=== PATIENT | female | born 1965 | race Caucasian/White ===

== ENCOUNTER → 2018-02-08 12:27 | Outpatient (CLI) | payer OTHER, SELFPAY ==
[2018-02-23 15:08] LABS: Alanine Aminotransferase 69 IU/L (9-52); Albumin 4.6 g/dL (3.5-5.0); Albumin Globulin Ratio 1.5 (1.0-2.8); Alkaline Phosphatase 91 U/L (38-126); Aspartate Aminotransferase 31 IU/L (14-36); Bilirubin Total 0.7 mg/dL (0.2-1.3); Bilirubin Unconjugated 0.4 mg/dL (0.0-1.1); Globulin 3.1 g/dL (1.7-4.1); HEMOLYSIS < 15 (0-50); Total Protein 7.7 g/dL (6.3-8.2)
[2018-02-25 16:43] LABS: Hepatitis A Antibody IgM NONREACTIVE; Hepatitis Acute Panel Interp 0.01; Hepatitis B Core Antibody IgM NONREACTIVE; Hepatitis B Surface Antigen NONREACTIVE; Hepatitis C Antibody NONREACTIVE
== END ==
PROVIDERS: Family Provider Family Medicine; PCP Family Medicine; Visit Provider Internal Medicine
DX: R19.7 Diarrhea, unspecified (principal); R50.9 Fever, unspecified
CPT/HCPCS: 87045

== ENCOUNTER → 2018-02-08 12:37 | Outpatient (CLI) | payer OTHER, SELFPAY ==
[2018-02-08 13:59] LABS: Alanine Aminotransferase 64 IU/L (9-52); Albumin 4.2 g/dL (3.5-5.0); Albumin Globulin Ratio 1.2 (1.0-2.8); Alkaline Phosphatase 117 U/L (38-126); Amylase 93 U/L (30-110); Aspartate Aminotransferase 52 IU/L (14-36); Bilirubin Total 0.6 mg/dL (0.2-1.3); Blood Urea Nitrogen 8 mg/dL (7-17); Carbon Dioxide 30 mmol/L (22-32); Chloride 98 mmol/L (98-107); Estimated Glomerular Filt Rate > 60.0 mL/min (>60); Globulin 3.4 g/dL (1.7-4.1); Glucose 94 mg/dL (70-100); HEMOLYSIS < 15 (0-50); Lipase 210 U/L (23-300); Potassium 4.3 mmol/L (3.4-5.1); Sodium 139 mmol/L (137-145); Total Protein 7.6 g/dL (6.3-8.2)
[2018-02-08 14:06] LABS: Add Manual Diff / Slide Review NO; Basophils Percent Auto 0.9 % (0-2); Eosinophils Percent Auto 0.6 % (2-4); Hematocrit 40.7 % (36-46); Lymphocytes Percent Auto 27.9 % (25-40); Mean Corpuscular HGB Conc 34.5 % (30-36); Monocytes Percent Auto 11.4 % (3-14); Neutrophils Absolute Auto 3400 /uL (3000-5900); Neutrophils Percent Auto 59.2 % (50-75); Platelet Count 258 X10^3/uL (150-400); Red Blood Cell Count 4.68 X10^6/uL (4.0-5.2); Red Cell Distribution Width 12.4 % (11.6-14.8); White Blood Cell Count 5.8 X10^3/uL (4.5-11.0)
== END ==
PROVIDERS: PCP Family Medicine; Visit Provider Internal Medicine
DX: R19.7 Diarrhea, unspecified (principal); R50.9 Fever, unspecified
CPT/HCPCS: 36415; 80053; 80074; 80076; 82150; 83690; 85025; 87015; 87045; 87427; 87899

== ENCOUNTER → 2018-02-23 12:51 | Outpatient (CLI) | payer OTHER, SELFPAY ==
[2018-02-23 15:10] LABS: Alanine Aminotransferase 66 IU/L (9-52); Albumin 4.5 g/dL (3.5-5.0); Albumin Globulin Ratio 1.4 (1.0-2.8); Alkaline Phosphatase 93 U/L (38-126); Aspartate Aminotransferase 31 IU/L (14-36); BUN Creatinine Ratio 18.6 (6-22); Bilirubin Total 0.7 mg/dL (0.2-1.3); Blood Urea Nitrogen 13 mg/dL (7-17); Calcium 10.8 mg/dL (8.4-10.2); Carbon Dioxide 28 mmol/L (22-32); Chloride 101 mmol/L (98-107); Estimated Glomerular Filt Rate > 60.0 mL/min (>60); Globulin 3.2 g/dL (1.7-4.1); Glucose 111 mg/dL (70-100); HEMOLYSIS < 15 (0-50); Potassium 4.4 mmol/L (3.4-5.1); Sodium 143 mmol/L (137-145); Total Protein 7.7 g/dL (6.3-8.2)
== END ==
PROVIDERS: PCP Family Medicine; Visit Provider Family Medicine
DX: R94.5 Abnormal results of liver function studies (principal)
CPT/HCPCS: 36415; 80053

== ENCOUNTER → 2020-01-17 15:41 | Outpatient (CLI) | payer OTHER, SELFPAY ==
--- NOTE | 2020-01-17 15:43 | DI.RAD.S_ITS ---
PROCEDURE: XR CERVICAL SPINE 2V OR 3V INDICATIONS: cervical neck pain and shoulder pain TECHNIQUE: 3 view(s) of the cervical spine were acquired. COMPARISON: None. FINDINGS: Bones: No fracture. Multilevel degenerative endplate sclerosis and spurring. Diffuse facet arthropathy. Straightening of the normal lordotic curvature. Diffuse mild to moderate narrowing of the cervical disc spaces. Minimal levocurvature. Soft tissues: No prevertebral soft tissue swelling. IMPRESSION: Zgwg-bz-zfgkawzy diffuse cervical spondylosis. Minimal levocurvature Facet arthropathy Dictated by: David Barlow M.D. on 01/17/2020 at 16:58 Approved by: David Barlow M.D. on 01/17/2020 at 16:59
--- NOTE | 2020-01-17 15:43 | DI.RAD.S_ITS ---
PROCEDURE: XR SHOULDER LT MIN 2V INDICATIONS: cervical neck pain and shoulder pain TECHNIQUE: 3 views of the shoulder were acquired. COMPARISON: None. FINDINGS: Bones: No fractures or dislocations. No suspicious bony lesions. Visualized ribs appear intact. Soft tissues: No suspicious soft tissue calcifications. IMPRESSION: Unremarkable examination as above. If the patient's pain or other symptoms persist, consider further evaluation with MRI Dictated by: David Barlow M.D. on 01/17/2020 at 16:59 Approved by: David Barlow M.D. on 01/17/2020 at 17:00
== END ==
PROVIDERS: Family Provider Family Medicine; PCP Family Medicine; Referring Provider Family Medicine; Visit Provider Family Medicine
DX: M50.90 Cervical disc disorder, unspecified, unspecified cervical region (principal); M47.812 Spondylosis without myelopathy or radiculopathy, cervical region; M25.512 Pain in left shoulder
CPT/HCPCS: 72040; 73030

== ENCOUNTER → 2020-02-27 17:09 | Outpatient (CLI) | payer OTHER, SELFPAY ==
--- NOTE | 2020-02-27 17:11 | DI.MRI.S_ITS ---
PROCEDURE: MR CERVICAL SPINE WO CON INDICATIONS: ONGOING LEFT SHOULDER AND NECK PAIN TECHNIQUE: Noncontrast sagittal T1 spin echo and T2 fast spin echo, sagittal STIR, foraminal oblique sagittal T2 fast spin echo, and axial gradient echo or T2 fast spin echo through the cervical spine. COMPARISON: [facility], CR, XR CERVICAL SPINE 2V OR 3V, 01/17/2020, 15:41. FINDINGS: Image quality: Excellent. Alignment and Curvature: There is straightening of normal cervical curvature. Trace retrolithesis of C4 on C5, trace anterolithesis of C7-T1. Bone Marrow: Marrow demonstrates normal overall signal. Spinal Cord: Visualized spinal cord has normal size and signal. No cerebellar tonsillar herniation. Paraspinous Soft Tissues: No paravertebral masses. Prevertebral soft tissues are normal in thickness. Discs: Minimal to mild disc a ward is present throughout the cervical spine. C2-C3: Minimal disc bulge without spinal stenosis or foraminal narrowing. C3-C4: Mild disc bulge with mild spinal stenosis. Mild bilateral foraminal narrowing. C4-C5: Mild disc bulge with mild spinal stenosis. Minimal to mild bilateral foraminal narrowing. C5-C6: Mild disc bulge without spinal stenosis. Oium-wo-eqkprhcg right and mild left foraminal narrowing with uncovertebral hypertrophy. C6-C7: Mild disc bulge with minimal canal narrowing. Mild right foraminal narrowing with uncovertebral hypertrophy. C7-T1: No disc bulge, spinal stenosis or foraminal narrowing. IMPRESSION: 1. Multilevel disc bulges. 2. Overall minimal to mild spinal stenosis predominantly secondary to disc bulge with contributing effect of straightening of cervical curvature. 3. Multilevel foraminal narrowing as above. Dictated by: Cheryl Alcantara M.D. on 02/28/2020 at 14:01 Approved by: Cheryl Alcantara M.D. on 02/28/2020 at 14:33
== END ==
PROVIDERS: Family Provider Family Medicine; PCP Family Medicine; Referring Provider Family Medicine; Visit Provider Family Medicine
DX: M25.512 Pain in left shoulder (principal); M50.21 Other cervical disc displacement, high cervical region; M48.02 Spinal stenosis, cervical region
CPT/HCPCS: 72141

== ENCOUNTER → 2020-04-27 15:32 | Outpatient (CLI) | payer OTHER, SELFPAY ==
[2020-04-27 16:31] LABS: COVID19 -Nasal RAPID Negative (Negative)
== END ==
PROVIDERS: Family Provider Family Medicine; PCP Family Medicine; Visit Provider Physician Assistant
DX: Z11.59 Encounter for screening for other viral diseases (principal)
CPT/HCPCS: 87635

== ENCOUNTER → 2020-08-29 14:51 | Outpatient (ROUT) | payer OTHER, SELFPAY ==
[2020-08-29 16:02] LABS: Appearance Urine UA CLEAR; Bilirubin Urine UA NEGATIVE (NEGATIVE); Color Urine UA YELLOW; Glucose Urine UA NEGATIVE (Negative); Ketones Urine UA 1+ (NEGATIVE); Leukocyte Esterase Urine UA 3+ (NEGATIVE); Nitrite Urine UA POSITIVE (Negative); Occult Blood Urine UA 3+ (Negative); Protein Urine UA TRACE (Negative); Specific Gravity Urine UA <=1.005 (1.000-1.035); Urobilinogen Urine UA 0.2 E.U./dL (0.2)
[2020-08-29 16:41] LABS: Bacteria Urine Few (2-10); Culture Indicated Urine Specimen Cultured; RBC Urine 5-10/HPF (0-5/HPF); Squamous Epithelial Cell Urine 0-1 /HPF (0-5/HPF); WBC Urine >100/HPF (0-5/HPF)
[2020-09-04 14:33] LABS: Bacteria Urine None Seen; RBC Urine None Seen (0-5/HPF); WBC Urine None Seen (0-5/HPF)
[2020-09-04 14:36] LABS: Appearance Urine UA CLEAR; Bilirubin Urine UA NEGATIVE (NEGATIVE); Color Urine UA YELLOW; Glucose Urine UA TRACE g/dL (Negative); Ketones Urine UA TRACE (NEGATIVE); Leukocyte Esterase Urine UA NEGATIVE (NEGATIVE); Nitrite Urine UA NEGATIVE (Negative); Occult Blood Urine UA NEGATIVE (Negative); Protein Urine UA NEGATIVE (Negative); Urobilinogen Urine UA 0.2 E.U./dL (0.2)
[2020-09-04 14:40] LABS: Culture Indicated Urine Cult Not Indicated; Urine Comments Microscopic Normal
== END ==
PROVIDERS: Family Provider Family Medicine; PCP Family Medicine; Visit Provider Family Medicine
DX: R31.9 Hematuria, unspecified (principal); J18.9 Pneumonia, unspecified organism; N17.8 Other acute kidney failure
CPT/HCPCS: 81001; 87077; 87086; 87186

== ENCOUNTER → 2020-10-07 15:46 | Outpatient (CLI) | payer OTHER, SELFPAY ==
[2020-10-07 18:27] LABS: COVID19 -Nasal RAPID Negative (Negative)
== END ==
PROVIDERS: Family Provider Family Medicine; PCP Family Medicine; Visit Provider Student in an Organized Health Care Education/Training Program
DX: Z01.812 Encounter for preprocedural laboratory examination (principal); Z20.822 Contact with and (suspected) exposure to COVID-19
CPT/HCPCS: 87635

== ENCOUNTER 2020-10-08 08:51 | Outpatient (CLI) | payer OTHER, SELFPAY ==
[2020-10-08] VITALS (7 sets, daily range): BP systolic 91–129; BP diastolic 50–69; PULSE 86–100; RESP 10–20; O2SAT 94–98
--- NOTE | 2020-10-08 08:55 | DI.RAD.S_ITS ---
PROCEDURE: PAIN C/T INTERLAMINAR INJECT INDICATIONS: SPINAL STENOSIS COMPARISON: [facility], CR, XR CERVICAL SPINE 2V OR 3V, 01/17/2020, 15:41. FINDINGS: Fluoroscopic spot filming was performed to verify placement of a spinal needle at the C6-C7 level, as labeled on the films. Appropriate location of the needle tip was confirmed by injection of iodinated contrast. IMPRESSION: No significant intraprocedural abnormality. Dictated by: Kendall Montaño M.D. on 10/08/2020 at 9:38 Approved by: Kendall Montaño M.D. on 10/08/2020 at 9:38
[2020-10-08] MEDS: fentaNYL 100 MCG/2 ML INJ 50 MCG IV (09:42)
[2020-10-08] MEDS: MIDAZOLAM 5 MG/5 ML VIAL IV (09:42)
[2020-10-08] MEDS: DEXAMETHASONE 10 MG/ML VIAL 30 MG INJ (09:45)
[2020-10-08] MEDS: IOPAMIDOL 15 ML VIAL 3 ML INJ (09:45)
[2020-10-08] MEDS: BUPIVACAINE 0.25% (PF) VIAL 2 ML INJ (09:45)
--- NOTE | 2020-10-08 10:00 | P.PCN_ITS ---
Date/Time/Diagnoses Date of procedure: 10/08/20 Time of procedure: 10:00 Pre-procedure diagnosis: 1. CERVICAL STENOSIS, 2. CERVICAL HNP WITH UPPER EXTREMITY RADICULAR FEATURES Post-procedure diagnosis: same Procedure Notes Procedure: 1. FLUORSCOPICALLY GUIDED CONTRAST CONTROLLED INTERLAMINAR EPIDURAL STEROID INJECTION - C6/7 TL FAIZA Indications: Casie is referred by Dr. Garrett for treatment of Cervical HNP with Upper Extremity Paresthesias. Physician: Maik Conde Total Fluoroscopy time (seconds): 24 Total sedation minutes: 10 Complications: none Procedure in detail & Post-procedure care: FINDINGS Cervical Stenosis due to disc deterioration and nerve root irritation and nerve root irritation DESCRIPTION OF PROCEDURE Fluoroscopically guided, contrast-controlled C6/7 translaminar epidural steroid injection with conscious sedation. Following review of allergy and review of potential side effects and complications, including, but not necessarily limited to, infection, allergic reaction, local tissue breakdown, temporary as well as permanent nerve injury, stroke, paralysis, and possible , the patient indicated that patient understood and agreed to proceed. An informed consent document was signed by the patient, witnessed by a nurse, and placed in the patient's chart. Additionally, other treatment options including modalities, medications, and physical therapy were reviewed with the patient. After review of previous anaesthesic history and IV conscious sedation the patient was deemed safe to proceed with today?s procedure with IV conscious sedation as ASA class II designation. Safety time-out was performed to confirm patient ID, procedure to be performed and site of procedure. IV sedation was accomplished with a combination of 2mg of Versed and 50mcg of Fentanyl administered by the RN after DO order, titrated to patient comfort during the course of the procedure while the patient remained responsive to all verbal commands. In the prone position, following sterile prep and drape of the cervical region, the C6/7 translaminar space was identified fluoroscopically. The skin was anesthetized via a 25-gauge 1.5-inch needle with 1% lidocaine solution. At this point, a 25-gauge, 2.5-inch short bevel spinal needle was atraumatically introduced and advanced under fluoroscopic guidance into epidural space at the C6/7 translaminar space. Depth was confirmed on lateral view. Radiological data, including multiple fluoroscopic views of the cervical spine, reveal a spinal needle at the C6/7 translaminar space. Lateral views then show placement of the needle in the epidural space. Subsequent views show contrast material flowing superiorly and inferiorly in the epidural space. DSA fluoroscopy with live contrast injection, once again, confirmed no vascular or intrathecal uptake. At this point, using loss of resistance technique with saline and air, the epidural space was entered. Following negative aspiration, injection of appr oximately 1.5 cc of Isovue-200 with live fluoroscopy in the AP view confirmed epidural flow in the epidural space without vascular or intrathecal uptake observed. Subsequently, a test dose of 1 cc of 1% lidocaine solution was injected and patient was observed for two minutes without signs or symptoms of complications, including abdominal pain, shortness of breath, bilateral upper or lower extremity weakness, nausea and vomiting, prior to steroid injection. At this point, 3cc or 30mg of dexamethasone was then injected without incident. The patient tolerated the procedure well without signs or symptoms of complications prior to being transferred to the recovery area for further monitoring, The patient was then transferred to the recovery area where they were observed for an appropriate period of time after the injection. The patient reported a VAS score of 6 prior to the procedure and a post-procedure VAS of 0. POST OP INSTRUCTIONS The patient was provided a Pain Log to continue to record their response to the target-specific procedure prior to follow-up visit with the referring provider. Additionally, specific post-injection care instructions and a contact number to our office were provided if concerns arise regarding possible complications associated with the procedure are suspected.
== END 2020-10-08 10:20 | disposition home or self-care (01) ==
LOC: RAD 08:54
PROVIDERS: Family Provider Family Medicine; PCP Family Medicine; Referring Provider Physical Medicine & Rehabilitation; Visit Provider Physical Medicine & Rehabilitation
DX: M48.02 Spinal stenosis, cervical region (principal); M50.123 Cervical disc disorder at C6-C7 level with radiculopathy
CPT/HCPCS: 62321; 99152; J1100; J2250; J3010

== ENCOUNTER → 2021-04-07 07:36 | Outpatient (CLI) | payer OTHER, SELFPAY ==
[2021-04-07 07:58] LABS: Add Manual Diff / Slide Review NO; Basophils Absolute Auto 100 /uL (0-100); Basophils Percent Auto 1.3 % (0-2); Eosinophils Absolute Auto 200 /uL (0-450); Eosinophils Percent Auto 3.9 % (2-4); Hematocrit 40.6 % (36-46); Hemoglobin 13.6 g/dL (12.0-16.0); Lymphocytes Absolute Auto 2400 /uL (1100-4500); Lymphocytes Percent Auto 41.2 % (25-40); Mean Corpuscular HGB Conc 33.6 % (30-36); Mean Corpuscular Hemoglobin 29.8 PG (26-34); Mean Corpuscular Volume 88.7 fL (80-100); Monocytes Absolute Auto 500 /uL (0-900); Monocytes Percent Auto 8.1 % (3-14); Neutrophils Absolute Auto 2600 /uL (1500-7000); Neutrophils Percent Auto 45.5 % (50-75); Platelet Count 301 X10^3/uL (150-400); Red Blood Cell Count 4.58 X10^6/uL (4.0-5.2); Red Cell Distribution Width 13.7 % (11.6-14.8); White Blood Cell Count 5.8 X10^3/uL (4.5-11.0)
[2021-04-07 08:16] LABS: Alanine Aminotransferase 67 IU/L (<35); Albumin 4.4 g/dL (3.5-5.0); Albumin Globulin Ratio 1.5 (1.0-2.8); Alkaline Phosphatase 97 U/L (38-126); Aspartate Aminotransferase 33 IU/L (14-36); BUN Creatinine Ratio 27.5 (6-22); Bilirubin Total 0.5 mg/dL (0.2-1.3); Blood Urea Nitrogen 19 mg/dL (7-17); Calcium 10.2 mg/dL (8.4-10.2); Carbon Dioxide 26 mmol/L (22-32); Chloride 103 mmol/L (98-107); Cholesterol 266 mg/dL (140-199); Estimated Glomerular Filt Rate > 60.0 mL/min (>60); Globulin 2.9 g/dL (1.7-4.1); Glucose 103 mg/dL (70-100); HDL Cholesterol 90 mg/dL (40-60); HEMOLYSIS < 15 (0-50); LDL Cholesterol Calculated 158 mg/dL (<100); Potassium 4.1 mmol/L (3.4-5.1); Sodium 139 mmol/L (137-145); Total Protein 7.3 g/dL (6.3-8.2); Triglycerides 90 mg/dL (35-150)
[2021-04-07 08:28] LABS: Follicle Stimulating Hormone 52.4 mIU/mL; Free T3, Triiodothyronine Free 4.38 pg/mL (2.77-5.27); Free T4, Direct Thyroxine 1.16 ng/dL (0.78-2.19); Luteinizing Hormone 42.3 mIU/mL
[2021-04-07 08:41] LABS: Thyroid Stimulating Hormone 2.24 uIU/mL (0.47-4.68)
== END ==
PROVIDERS: Family Provider Family Medicine; PCP Family Medicine; Referring Provider Family Medicine; Visit Provider Family Medicine
DX: E66.9 Obesity, unspecified (principal); N95.1 Menopausal and female climacteric states; R94.5 Abnormal results of liver function studies; Z78.9 Other specified health status; Z90.710 Acquired absence of both cervix and uterus
CPT/HCPCS: 36415; 80053; 80061; 83001; 83002; 84439; 84443; 84481; 85025

== ENCOUNTER → 2021-04-23 08:08 | Outpatient (CLI) | payer OTHER, SELFPAY ==
--- NOTE | 2021-04-23 08:08 | DI.US.S_ITS ---
PROCEDURE: US ABDOMEN LIMITED INDICATIONS: ELEVATED LIVER ENZYMES TECHNIQUE: Real-time focused scanning was performed of the abdomen, with image documentation. COMPARISON: None. FINDINGS: Pancreas: The visualized portions appear normal. Gallbladder: No gallbladder wall thickening, pericholecystic fluid, or shadowing gallstones. A 3.3 mm nonmobile echogenic focus is seen, most consistent with a polyp. The common bile duct measures up to 5.2 mm. Liver: Normal contour. Increased echogenicity, suggesting hepatic steatosis. The liver measures up to 14.4 cm in length. The portal vein is patent. IMPRESSION: 1. Hepatic steatosis. 2. Gallbladder polyp, measuring up to 3.3 mm. Dictated by: Jessee Harris M.D. on 04/30/2021 at 10:04 Approved by: Jessee Harris M.D. on 04/30/2021 at 10:14
== END ==
PROVIDERS: Family Provider Family Medicine; PCP Family Medicine; Referring Provider Physical Medicine & Rehabilitation; Visit Provider Physical Medicine & Rehabilitation
DX: K82.4 Cholesterolosis of gallbladder (principal); R74.8 Abnormal levels of other serum enzymes; K76.0 Fatty (change of) liver, not elsewhere classified
CPT/HCPCS: 76705

== ENCOUNTER → 2021-09-24 10:45 | Outpatient (CLI) | payer OTHER, SELFPAY ==
[2021-09-24 12:37] LABS: Appearance Urine UA CLEAR; Bilirubin Urine UA NEGATIVE (NEGATIVE); Color Urine UA YELLOW; Glucose Urine UA NEGATIVE (Negative); Ketones Urine UA NEGATIVE (NEGATIVE); Leukocyte Esterase Urine UA NEGATIVE (NEGATIVE); Nitrite Urine UA NEGATIVE (Negative); Occult Blood Urine UA NEGATIVE (Negative); Protein Urine UA NEGATIVE (Negative); Specific Gravity Urine UA <=1.005 (1.000-1.035); Urobilinogen Urine UA 0.2 E.U./dL (0.2)
[2021-09-24 12:46] LABS: pH Urine UA 5.5 (4.5-8.0)
[2021-09-24 12:57] LABS: Bacteria Urine None Seen; Culture Indicated Urine Cult Not Indicated; RBC Urine None Seen (0-5/HPF); Squamous Epithelial Cell Urine 0-1 /HPF (0-5/HPF); WBC Urine 0-1/HPF (0-5/HPF)
== END ==
PROVIDERS: Family Provider Family Medicine; PCP Family Medicine; Visit Provider Physician Assistant
DX: R10.32 Left lower quadrant pain (principal)
CPT/HCPCS: 81001

== ENCOUNTER → 2021-11-24 07:49 | Outpatient (CLI) | payer OTHER, SELFPAY ==
--- NOTE | 2021-11-24 08:10 | DI.NM.S_ITS ---
PROCEDURE: NM HIDA WITH CCK PHARMACEUTICAL: 4.9 mCi Tc-99m mebrofenin IV; 1.7 mcg CCK IV. INDICATIONS: Abdominal pain; nausea; loss of appetite; loose stools TECHNIQUE: Following intravenous administration of Tc-99m mebrofenin, sequential anterior abdominal images were obtained. To evaluate the contractile response of the gallbladder in response to Cholecystokinin (CCK), sincalide (0.02 ?g/kg) was administered by slow intravenous infusion approximately 60 minutes after the administration of the radiopharmaceutical. Sequential imaging was continued for 30 minutes after the start of CCK infusion. Gallbladder ejection fraction was calculated. COMPARISON: None. FINDINGS: Biliary scan: There is normal tracer uptake and excretion by the liver. There is normal visualization of the intrahepatic ducts, common bile duct, and gallbladder. There is normal tracer transit into the duodenum. CCK stimulation: There is appropriate contractile response of the gallbladder to CCK infusion. The calculated gallbladder ejection fraction is 41% ; normal values are above 35%. It has been shown that any patient abdominal pain after CCK administration is related to the rate of CCK injection, rather than to any underlying gallbladder disease (Clinical Nuclear Medicine 2012; 37: 63-70. Journal of Nuclear Medicine 2014; 55: 1-9). IMPRESSION: No evidence of cholecystitis. Dictated by: Destiney Christiansen M.D. on 11/24/2021 at 11:52 Approved by: Destiney Christiansen M.D. on 11/24/2021 at 11:53
== END ==
PROVIDERS: Family Provider Family Medicine; PCP Family Medicine; Referring Provider Physician Assistant; Visit Provider Physician Assistant
DX: K82.4 Cholesterolosis of gallbladder (principal); R10.9 Unspecified abdominal pain
CPT/HCPCS: 78227; A9537; J2805

== ENCOUNTER → 2021-11-26 10:46 | Outpatient (CLI) | payer OTHER, SELFPAY ==
--- NOTE | 2021-11-26 10:47 | DI.US.S_ITS ---
PROCEDURE: US PELVIC COMPLETE INDICATIONS: LLQ pain x several months TECHNIQUE: Real-time scanning was performed of the pelvic organs, with image documentation. Additional endovaginal scanning was necessary due to incomplete visualization of the adnexal and endometrial structures by transabdominal scanning. COMPARISON: None. FINDINGS: Uterus: Hysterectomy Ovaries: Right and left ovaries measure 1.6 x 1.6 x 1.6 cm and 2.9 x 2.2 x 1.6 cm respectively. Both ovaries have appropriate size, echotexture and vascularity without evidence of torsion or adnexal mass. Small collapsing follicular cyst on the left measures 1.2 cm Other: No pathologic free abdominal or pelvic fluid. IMPRESSION: Unremarkable ultrasound the pelvis status post hysterectomy Approved by: Philip Qureshi M.D. on 11/26/2021 at 14:02
== END ==
PROVIDERS: Family Provider Family Medicine; PCP Family Medicine; Referring Provider Physician Assistant; Visit Provider Physician Assistant
DX: R10.32 Left lower quadrant pain (principal)
CPT/HCPCS: 76830; 76856

== ENCOUNTER → 2021-12-03 15:36 | Outpatient (CLI) | payer OTHER, SELFPAY ==
--- NOTE | 2021-12-03 15:37 | DI.MG.S_ITS ---
BILATERAL DIGITAL SCREENING MAMMOGRAM 3D/2D WITH CAD: 12/03/2021 CLINICAL: Routine screening. Comparison is made to exams dated: 07/18/2009 mammogram, 03/31/2006 mammogram, and 03/31/2006 [facility]. There are scattered fibroglandular elements in both breasts. Current study was also evaluated with a Computer Aided Detection (CAD) system. No significant masses, calcifications, or other findings are seen in either breast. There has been no significant interval change. IMPRESSION: NEGATIVE There is no mammographic evidence of malignancy. A 1 year screening mammogram is recommended. Based on the Tyrer Cuzick model (a risk assessment model) the patient's lifetime risk is 6.8% and her 10 year risk is 2.2%. According to the ACR, ACS, and NCCN guidelines, an annual breast MRI exam along with mammogram is recommended if the patient's lifetime risk is 20% or greater. This exam was interpreted at Station ID: [id number]. NOTE: For mammograms, a report in lay terms will be sent to the patient. Approximately 15% of breast malignancies will not be visualized mammographically. In the management of a palpable breast mass, a negative mammogram must not discourage biopsy of a clinically suspicious lesion. Electronically Signed By: Jeffy teran/ann:12/04/2021 07:56:20 letter sent: Normal Exam ACR BI-RADS Category 1: Negative 3341F
== END ==
PROVIDERS: Family Provider Family Medicine; PCP Family Medicine; Referring Provider Family Medicine; Visit Provider Family Medicine
DX: Z12.31 Encounter for screening mammogram for malignant neoplasm of breast (principal)
CPT/HCPCS: 77063; 77067

== ENCOUNTER → 2022-01-21 08:42 | Outpatient (CLI) | payer OTHER, SELFPAY ==
--- NOTE | 2022-01-21 08:46 | DI.US.S_ITS ---
PROCEDURE: US ABDOMEN COMPLETE INDICATIONS: LIVER/GALLBLADDER CONGESTION TECHNIQUE: Real-time scanning was performed of the abdominal and retroperitoneal organs, with image documentation. COMPARISON: [facility], , US ABDOMEN LIMITED, 04/23/2021, 8:31. FINDINGS: Liver: Hepatic parenchyma shows diffuse increased echogenicity consistent with fatty infiltration. Gallbladder: Small 2.4 mm gallbladder wall polyp without evidence cholelithiasis, gallbladder wall thickening or pericholecystic fluid. No sonographic Galeana sign. Biliary ducts: Intrahepatic bile ducts are non-dilated. Extrahepatic bile duct caliber measures 6.6 mm. Normal is 6-7 mm or less in diameter, or 10 mm or less post-cholecystectomy. Pancreas: Visualized portions of the pancreas are sonographically normal. Spleen: Spleen is normal in size and homogeneous in echotexture. Kidneys: Kidneys are normal in size and echotexture. Right kidney measures 10.9 cm long; left kidney measures 11.5 cm long. No hydronephrosis or nephrolithiasis. No solid masses. Aorta: Visualized aorta is normal in caliber at less than 3 cm. Iliacs: Proximal common iliac arteries are normal in caliber at less than 2.5 cm. IVC: Intrahepatic inferior vena cava is patent. Miscellaneous: No free abdominal fluid. IMPRESSION: Stable small gallbladder wall polyp. No cholelithiasis. Approved by: Philip Qureshi M.D. on 01/21/2022 at 10:53
[2022-01-21 09:59] LABS: Add Manual Diff / Slide Review NO; Basophils Absolute Auto 100 /uL (0-100); Eosinophils Absolute Auto 300 /uL (0-450); Eosinophils Percent Auto 4.3 % (2-4); Hematocrit 40.1 % (36-46); Hemoglobin 13.7 g/dL (12.0-16.0); Lymphocytes Absolute Auto 2100 /uL (1100-4500); Lymphocytes Percent Auto 35.4 % (25-40); Mean Corpuscular HGB Conc 34.3 % (30-36); Mean Corpuscular Hemoglobin 29.4 PG (26-34); Mean Corpuscular Volume 85.8 fL (80-100); Monocytes Absolute Auto 500 /uL (0-900); Monocytes Percent Auto 7.7 % (3-14); Neutrophils Absolute Auto 3000 /uL (1500-7000); Neutrophils Percent Auto 51.6 % (50-75); Platelet Count 286 X10^3/uL (150-400); Red Blood Cell Count 4.68 X10^6/uL (4.0-5.2); Red Cell Distribution Width 12.7 % (11.6-14.8); White Blood Cell Count 5.8 X10^3/uL (4.5-11.0)
[2022-01-21 10:35] LABS: Alanine Aminotransferase 38 IU/L (<35); Albumin 4.1 g/dL (3.5-5.0); Albumin Globulin Ratio 1.4 (1.0-2.8); Alkaline Phosphatase 93 U/L (38-126); Aspartate Aminotransferase 23 IU/L (14-36); BUN Creatinine Ratio 12.2 (6-22); Bilirubin Total 0.5 mg/dL (0.2-1.3); Blood Urea Nitrogen 9 mg/dL (7-17); Calcium 9.8 mg/dL (8.4-10.2); Carbon Dioxide 26 mmol/L (22-32); Chloride 103 mmol/L (98-107); Cholesterol 229 mg/dL (140-199); Estimated Glomerular Filt Rate > 60 mL/min (>60); Glucose 97 mg/dL (70-100); HDL Cholesterol 67 mg/dL (40-60); HEMOLYSIS < 15 (0-50); LDL Cholesterol Calculated 146 mg/dL (<100); Sodium 139 mmol/L (137-145); Total Protein 7.1 g/dL (6.3-8.2); Triglycerides 80 mg/dL (35-150)
[2022-01-21 10:36] LABS: Potassium 4.3 mmol/L (3.4-5.1)
== END ==
PROVIDERS: Physician Assistant; Family Provider Family Medicine; PCP Family Medicine; Referring Provider Physical Medicine & Rehabilitation; Visit Provider Physical Medicine & Rehabilitation
DX: K82.4 Cholesterolosis of gallbladder (principal); R10.84 Generalized abdominal pain; E78.5 Hyperlipidemia, unspecified; K21.9 Gastro-esophageal reflux disease without esophagitis; K76.0 Fatty (change of) liver, not elsewhere classified; R94.5 Abnormal results of liver function studies
CPT/HCPCS: 36415; 76700; 80053; 80061; 85025

== ENCOUNTER → 2023-04-26 08:07 | Outpatient (CLI) | payer OTHER, SELFPAY ==
--- NOTE | 2023-04-26 08:08 | DI.US.S_ITS ---
PROCEDURE: US ABDOMEN COMPLETE INDICATIONS: GB polyp TECHNIQUE: Real-time scanning was performed of the abdominal and retroperitoneal organs, with image documentation. COMPARISON: [facility], US, US ABDOMEN COMPLETE, 01/21/2022, 9:21. FINDINGS: Liver: The liver is normal in size. The liver is increased in echogenicity. Gallbladder: No gallstones or gallbladder wall thickening. 4 millimeter polyp within the posterior wall of gallbladder. Biliary ducts: Intrahepatic bile ducts are non-dilated. Extrahepatic bile duct caliber measures 4 mm. Normal is 6-7 mm or less in diameter, or 10 mm or less post-cholecystectomy. Pancreas: Visualized portions of the pancreas are sonographically normal. Spleen: Spleen is normal in size and homogeneous in echotexture. Kidneys: Kidneys are normal in size and echotexture. Right kidney measures 11.1 cm long; left kidney measures 11.3 cm long. No hydronephrosis or nephrolithiasis. No solid masses. Aorta: Visualized aorta is normal in caliber at less than 3 cm. Iliacs: Proximal common iliac arteries are normal in caliber at less than 2.5 cm. IVC: Intrahepatic inferior vena cava is patent. Miscellaneous: No free abdominal fluid. IMPRESSION: 1. There is a 4 millimeter gallbladder wall polyp. This is statistically favored to be benign and no follow-up is necessary. 2. Increased hepatic echogenicity noted possibly related to hepatic steatosis but other sources of hepatocellular disease or hepatic cirrhosis cannot be excluded. Recommend clinical correlation. Dictated by: Evertet Montilla M.D. on 04/26/2023 at 10:49 Approved by: Everett Montilla M.D. on 04/26/2023 at 10:51
[2023-04-26 10:48] LABS: Add Manual Diff / Slide Review NO; Basophils Absolute Auto 100 /uL (0-100); Basophils Percent Auto 0.9 % (0-2); Eosinophils Absolute Auto 100 /uL (0-450); Eosinophils Percent Auto 1.8 % (2-4); Hematocrit 41.3 % (36-46); Hemoglobin 14.1 g/dL (12.0-16.0); Lymphocytes Absolute Auto 2300 /uL (1100-4500); Lymphocytes Percent Auto 33.3 % (25-40); Mean Corpuscular HGB Conc 34.1 % (30-36); Mean Corpuscular Hemoglobin 29.9 PG (26-34); Mean Corpuscular Volume 87.7 fL (80-100); Monocytes Absolute Auto 500 /uL (0-900); Monocytes Percent Auto 6.8 % (3-14); Neutrophils Absolute Auto 3900 /uL (1500-7000); Neutrophils Percent Auto 57.2 % (50-75); Platelet Count 311 X10^3/uL (150-400); Red Blood Cell Count 4.71 X10^6/uL (4.0-5.2); Red Cell Distribution Width 13.3 % (11.6-14.8); White Blood Cell Count 6.8 X10^3/uL (4.5-11.0)
[2023-04-26 11:10] LABS: Alanine Aminotransferase 31 IU/L (<35); Albumin 4.2 g/dL (3.5-5.0); Albumin Globulin Ratio 1.3 (1.0-2.8); Alkaline Phosphatase 83 U/L (38-126); Aspartate Aminotransferase 24 IU/L (14-36); BUN Creatinine Ratio 10.4 (6-22); Bilirubin Total 0.5 mg/dL (0.2-1.3); Blood Urea Nitrogen 7 mg/dL (7-17); Calcium 10.8 mg/dL (8.4-10.2); Carbon Dioxide 28 mmol/L (22-32); Chloride 102 mmol/L (98-107); Estimated Glomerular Filt Rate > 60 mL/min (>60); Globulin 3.2 g/dL (1.7-4.1); Glucose 94 mg/dL (70-100); HDL Cholesterol 82 mg/dL (40-60); HEMOLYSIS < 15 (0-50); Potassium 4.6 mmol/L (3.4-5.1); Sodium 137 mmol/L (137-145); Total Protein 7.4 g/dL (6.3-8.2); Triglycerides 116 mg/dL (35-150)
[2023-04-26 11:41] LABS: TSH w/ Reflex to FT4 1.21 uIU/mL (0.47-4.68)
[2023-04-26 11:50] LABS: Cholesterol 245 mg/dL (140-199); LDL Cholesterol Calculated 140 mg/dL (<100)
[2023-04-28 17:36] LABS: Thyroid Stimulating Immunoglob < 0.10 IU/L (0.00-0.55)
== END ==
PROVIDERS: Family Provider Family Medicine; PCP Family Medicine; Referring Provider Family Medicine; Visit Provider Family Medicine
DX: K82.4 Cholesterolosis of gallbladder (principal); R10.9 Unspecified abdominal pain; K21.9 Gastro-esophageal reflux disease without esophagitis; K76.0 Fatty (change of) liver, not elsewhere classified; G43.909 Migraine, unspecified, not intractable, without status migrainosus
CPT/HCPCS: 36415; 76700; 80053; 80061; 84443; 84445; 85025

== ENCOUNTER → 2023-05-26 09:34 | Outpatient (CLI) | payer OTHER, SELFPAY ==
--- NOTE | 2023-05-26 09:35 | DI.MG.S_ITS ---
BILATERAL DIGITAL DIAGNOSTIC MAMMOGRAM 3D/2D: 05/26/2023 CLINICAL: Intermittent pain in left breast. Comparison is made to exams dated: 12/03/2021 mammogram, 07/18/2009 mammogram, and 03/31/2006 mammogram - . There are scattered areas of fibroglandular density in both breasts (category b / 25%-50% glandular tissue). There is an oval low density focal asymmetry with an obscured margin in the left breast at 12 o'clock middle depth. No other significant masses, calcifications, or other findings are seen in either breast. IMPRESSION: INCOMPLETE: NEEDS ADDITIONAL IMAGING EVALUATION The oval low density focal asymmetry in the left breast is indeterminate. A targeted ultrasound is recommended and will immediately follow. Based on the Tyrer Cuzick model (a risk assessment model) the patient's lifetime risk is 6.8% and her 10 year risk is 2.5%. According to the ACR, ACS, and NCCN guidelines, an annual breast MRI exam along with mammogram is recommended if the patient's lifetime risk is 20% or greater. This exam was interpreted at Station ID: [id number]. NOTE: For mammograms, a report in lay terms will be sent to the patient. Approximately 15% of breast malignancies will not be visualized mammographically. In the management of a palpable breast mass, a negative mammogram must not discourage biopsy of a clinically suspicious lesion. Electronically Signed By: Chris Strange M.D. slc/:05/26/2023 10:19:47 ACR BI-RADS Category 0: Incomplete 3340F
--- NOTE | 2023-05-26 09:35 | DI.US.S_ITS ---
LIMITED ULTRASOUND OF LEFT BREAST AND AXILLA: 05/26/2023 CLINICAL: Patient returns today to evaluate a focal asymmetry in the left breast + pain. Comparison is made to exams dated: 05/26/2023 mammogram, 12/03/2021 mammogram, 07/18/2009 mammogram, 03/31/2006 mammogram, and 03/31/2006 [facility]. Color flow and real-time ultrasound of the left breast 5-7 o'clock, 12 o'clock, and axilla regions were performed. Jerez scale images of the real-time examination were reviewed. There is a 1.7 cm x 1.5 cm x 0.5 cm oval mass with a circumscribed margin in the left breast at 12 o'clock middle depth 6 cm from the nipple. This oval mass is hypoechoic with a well-defined boundary. This likely correlates with mammography findings. Color flow imaging demonstrates that there is no vascularity present. No abnormality in the region of pain in the inferior breast. No significant abnormalities were seen sonographically in the left axilla. IMPRESSION: PROBABLY BENIGN The 1.7 cm circumscribed mass in the left breast resembles a fibroadenoma and is probably benign. A follow-up mammogram and an ultrasound in 6 months is recommended to demonstrate stability. No abnormality in the region of pain in the inferior breast. No enlarged left axillary lymph nodes. Exam findings were conveyed to the patient. This exam was interpreted at Station ID: [id number]. Electronically Signed By: Chris Strange M.D. slc/:05/26/2023 11:08:45 letter sent: Followup Recommended Ultrasound BI-RADS: 3 Probably benign
== END ==
PROVIDERS: Family Provider Family Medicine; PCP Family Medicine; Referring Provider Family Medicine; Visit Provider Family Medicine
DX: N64.4 Mastodynia (principal); R92.8 Other abnormal and inconclusive findings on diagnostic imaging of breast; N63.25 Unspecified lump in the left breast, overlapping quadrants
CPT/HCPCS: 76642; 77066; G0279

== ENCOUNTER 2023-06-04 13:38 | Day surgery (SDC) | payer OTHER, SELFPAY ==
--- NOTE | 2023-06-04 | PATH_ITS ---
[facility] Accession Number: [id number] No. of containers..01 Tissue . 01 Material submitted: . gastrointestinal site - GASTRIC . 01 Diagnosis: Stomach, Biopsies: Gastric body mucosa with no diagnostic abnormality. No evidence of Helicobacter organisms on H/E stain. Negative for intestinal metaplasia. Negative for dysplasia or malignancy. [facility] 06/11/2023 1451 Local . 01 Electronically signed: . Horace Jarquin MD, PhD, Pathologist NPI- [id number] . 01 Gross description: . GASTRIC: Received in formalin is 2 fragment(s) of henderson, soft tissue measuring 0.6 x 0.2 x 0.1 cm to 0.3 x 0.2 x 0.1 cm submitted entirely in 1 cassette(s) /AAY 06/09/2023 0100 Local . 01 Pathologist provided ICD-10: R10.9 . 01 CPT . 007662 Specimen Comment: A courtesy copy of this report has been sent to [phone] Performed at: 01 [facility] [address] [place] [address], [place], [place] [id number] MD Bryn Etienne MD Phone: [phone]
[2023-06-04 14:02] VITALS: BP 126/76; PULSE 85; RESP 17; TEMP 36.9; O2SAT 95; BMI 34.2
[2023-06-04] MEDS: LACTATED RINGERS 1,000 ML 42 ML IV ×2 (14:17→15:18)
--- NOTE | 2023-06-04 15:49 | P.OP.EGD&C_ITS ---
Operative Date/Time/Diagnoses Date of procedure: 06/04/23 Time of procedure: 15:49 Pre-op diagnosis: Abdominal pain Post-op diagnosis: other (Gastritis) Procedure & Clinicians Study performed: Diagnostic esophagoduodenoscopy, screening colonoscopy Same procedure as scheduled: Yes Indications: Abdominal pain Surgeon: Tim Betts Procedure Notes Procedure in detail: The history and physical was performed/updated and the patient is ASA class is 2. The procedure was discussed in detail with the patient. Potential risks complications including infection, bleeding, missed diagnosis, perforation, need for surgery, and were explained. Their questions were answered and informed consent was obtained. Patient placed in left lateral decubitus position. Time out was performed. Procedural sedation was administered by Anesthesia. A bite block was placed. the scope was inserted into the mouth and advanced through the esophagus and into the stomach. the pylorus was intubated and the duodenum was examined to the 2nd portion.. The scope was retroflexed within the stomach. The stomach was then decompressed and scope pulled back to the GE junction. The scope was then removed Examination began with a thorough inspection of the perianal area there was no evidence of fissures, fistulae, external hemorrhoids or cutaneous malignancy. The colonoscopy scope was then placed into the anal canal and was advanced to the cecum, which was identified by the ileocecal valve, the appendiceal orifice and the confluence of the taenia. The scope was then slowly withdrawn examining colon thoroughly in all directions, irrigating it of any residual stool. FINDINGS -Mild gastritis. Small amounts of clot within the antrum. Biopsy of the stomach performed with forceps. -No masses or polyps within the colon. -mild diverticulosis of sigmoid colon -internal hemorrhoids The patient tolerated the procedure well. They will be discharged once criteria are met. The prep was of good/excellent quality. The withdrawl time was 6 minutes. Following completion of endoscopy we proceeded with hemorrhoidal banding. The right posterior and left lateral hemorrhoid pedicles were each grasped with the suction liner roll changer doubly ligated at their base. Specimen(s): other (Gastric) Complications: none Impression: Gastritis, internal hemorrhoids Post-procedure Recommendations: Start medication(s) Plan for aftercare: Omeprazole 20 mg daily x1 month Disposition: same day surgery
[2023-06-04 15:50] VITALS: BP 117/72; PULSE 91; RESP 20; TEMP 36.5; O2SAT 100
[2023-06-04 15:55] VITALS: BP 116/79; PULSE 91; RESP 15; O2SAT 97
[2023-06-04 16:00] VITALS: BP 119/85; PULSE 100; RESP 12; O2SAT 99
[2023-06-04] MEDS: OXYCODONE IR 5 MG TABLET PO (16:08)
[2023-06-04 16:15] VITALS: BP 131/82; PULSE 73; RESP 14; O2SAT 100
[2023-06-04 16:30] VITALS: BP 125/86; PULSE 86; RESP 12; TEMP 37; O2SAT 100
== END 2023-06-04 16:40 | disposition home or self-care (01) ==
PROVIDERS: Family Provider Family Medicine; PCP Family Medicine; Referring Provider Surgery; Visit Provider Surgery
PROC: 0DJ08ZZ Inspection of Upper Intestinal Tract, Via Natural or Artificial Opening Endoscopic (ICD-10-PCS; CPT 43235; principal; 2023-06-04 14:45)
PROC: 0DJD8ZZ Inspection of Lower Intestinal Tract, Via Natural or Artificial Opening Endoscopic (ICD-10-PCS; CPT 45378; 2023-06-04 14:45)
DX: R10.9 Unspecified abdominal pain (principal); K29.70 Gastritis, unspecified, without bleeding; K57.30 Diverticulosis of large intestine without perforation or abscess without bleeding; K64.8 Other hemorrhoids
CPT/HCPCS: 45378; 46221; 43239; J2704

== ENCOUNTER 2023-07-16 11:23 | Day surgery (SDC) | payer OTHER, SELFPAY ==
[2023-07-14 10:38] VITALS: BMI 34.7
[2023-07-16] VITALS (8 sets, daily range): BP systolic 110–137; BP diastolic 65–83; PULSE 66–84; RESP 16–17; TEMP 36.2–37.2; O2SAT 95–98; BMI 34.7
--- NOTE | 2023-07-16 | PATH_ITS ---
[facility] Accession Number: [id number] No. of containers..01 Tissue . 01 Material submitted: . gallbladder - GALLBLADDER . 01 Diagnosis: Gallbladder, Cholecystectomy: Mild chronic cholecystitis. [facility] 07/20/2023 1122 Local . 01 Electronically signed: . Alicja Faith MD, Pathologist NPI- [id number] . 01 Gross description: . The specimen is received in formalin labeled with the patient's name, , and gallbladder, and consists of an intact gallbladder measuring 8.1 x 3.5 x 3.4 cm with an unremarkable external surface. The margin is inked blue, and no pericystic lymph node is identified. The lumen contains dark green viscous bile with no calculi identified in the lumen or the container. The mucosa is green and velvety with yellow areas of discoloration but no polyps or lesions identified. The henderson average 0.2 cm thick. Contract Law Specialist sections to include the cystic duct margins and full thickness sections are submitted in cassette A1. ([id number]) /JEREMIAH 07/17/2023 2224 Local . 01 Pathologist provided ICD-10: K81.1 . 01 CPT . 565348 Specimen Comment: A courtesy copy of this report has been sent to [phone] Performed at: 01 [facility] [address] [place] [address], [place], [place] [id number] MD Bryn Etienne MD Phone: [phone]
--- NOTE | 2023-07-16 12:24 | PM.PREOP ---
Pre-operative Note Interval Note History & Physical reviewed/Exam performed by Physician: Yes Changes to H&P: No
[2023-07-16] MEDS: ACETAMINOPHEN 325 MG TABLET 975 MG PO (12:33)
[2023-07-16] MEDS: LACTATED RINGERS 1,000 ML 42 ML IV (12:33)
--- NOTE | 2023-07-16 13:14 | SUR.OPER ---
Supine on padded OR bed, head on pillow, safety belt at thigh, left arm padded and tucked at side. Right arm secured on padded arm board <90 degrees abduction. Legs uncrossed. Padded footboard in place. Tape over blanket to secure lower legs.
[2023-07-16] MEDS: BUPIVACAINE 0.25% (PF) VIAL 30 ML INJ (13:23)
--- NOTE | 2023-07-16 13:50 | PM.OP.1 ---
Operative Date/Time/Diagnoses Date of procedure: 07/16/23 Time of procedure: 13:51 Pre-op diagnosis: Gallbladder polyp Post-op diagnosis: same Procedure & Clinicians Procedure: Laparoscopic cholecystectomy Same procedure as scheduled: Yes Indications: 58-year-old woman with symptoms of biliary colic ultrasound demonstrates gallbladder polyp versus stone. She is here for elective cholecystectomy. Surgeon: Tim Betts Click Yes if Unassisted: Yes Anesthesia Type: General Operative Notes Findings: Mild chronic cholecystitis Specimen(s): other (Gallbladder) Estimated Blood Loss (mL): 10 Procedure in detail: The patient was placed supine on the table and bilateral lower extremity compression devices were applied. Anesthesia was induced they were intubated with an endotracheal tube and received 2g of Ancef. A time-out was performed. They were prepped and draped in sterile fashion. An infraumbilical incision was made. The fascia was elevated incised and the abdomen was entered atraumatically. A blunt tip 12mm balloon trocar was then inserted, pneumoperitoneum was established and inspection of the abdomen demonstrated no evidence of injury. They were placed head up and right side up and then a 11 mm port was placed high in the epigastrium and two 5mm in the right upper quadrant. The gallbladder was grasped by the fundus and retracted over the liver and retracted laterally by the infundibulum. Using electrocautery the lateral plane between the gallbladder and the liver was opened towards the fundus. There were adhesions between the omentum and the gallbladder which were bluntly taken down suggestive of prior episodes of inflammation. The gallbladder was then retracted laterally and the medial plane was developed in the same manner. With the gallbladder mobilized the bottom of the cystic plate was visualized. The hepatocystic triangle was meticulosly skeletonized with blunt dissection of fat and fibrous tissue from both the front and the back. Only two structures were then clearly seen entering the gallbladder the cystic duct and the cystic artery. With the critical view of safety fully established the cystic duct was clipped twice proximally and once distally using the 10 mm Weck hemoclip applied under direct visualization and then sharply divided. The cystic artery was divided in the same fashion. The gallbladder was removed from the liver bed using electro cautery. The liver bed was then inspected for hemostasis and this was achieved. The abdomen was irrigated with sterile saline and inspection was made that showed the clips in good position. The specimen was removed using Endo-Catch. The abdomen was desufflated. The umbilical fascia was closed with 0 Vicryl in a [id number] fashion under direct visualization. Skin incisions were irrigated and closed with 4-0 Monocryl. 30 ml of 0.25% bupivacaine was infiltrated into the subcutaneous tissue of the incisions. The wounds were sealed with Dermabond. Patient emerged from anesthesia was extubated and transferred to recovery in stable condition. The sponge and instrument count at the end of the operation was correct. Complications: none Post-operative Condition: stable Disposition: same day surgery
[2023-07-16] MEDS: fentaNYL 100 MCG/2 ML INJ IV ×2 (13:55→14:02)
[2023-07-16] MEDS: OXYCODONE IR 5 MG TABLET PO ×2 (13:55→14:12)
[2023-07-16] MEDS: GABAPENTIN 600 MG TABLET PO (13:55)
[2023-07-16] MEDS: HYDROMORPHONE 1 MG INJ IV (14:12)
[2023-07-16] MEDS: ONDANSETRON 4 MG/2 ML INJ IV (14:35)
== END 2023-07-16 14:55 | disposition home or self-care (01) ==
PROVIDERS: Family Provider Family Medicine; PCP Family Medicine; Referring Provider Surgery; Visit Provider Surgery
PROC: 0FT44ZZ Resection of Gallbladder, Percutaneous Endoscopic Approach (ICD-10-PCS; CPT 47562; principal; 2023-07-16 12:45)
DX: K81.1 Chronic cholecystitis (principal)
CPT/HCPCS: 47562; J0690; J1100; J1170; J1885; J2250; J2405; J2704; J3010

== ENCOUNTER 2023-09-14 11:37 | Emergency (ER) | payer OTHER, SELFPAY ==
[2023-09-14] VITALS (8 sets, daily range): BP systolic 120–148; BP diastolic 69–98; PULSE 86–105; RESP 18; TEMP 37.5; O2SAT 94–97; BMI 34.7
--- NOTE | 2023-09-14 12:10 | DI.RAD.S_ITS ---
PROCEDURE: XR CHEST 1V INDICATIONS: Shortness of breath TECHNIQUE: One view of the chest was acquired. COMPARISON: [facility], , CHEST 2 VIEW, 06/29/2014, 14:49. FINDINGS: Surgical changes and devices: None. Lungs and pleura: Lungs are clear. No pleural effusions or pneumothorax. Mediastinum: Mediastinal contours appear normal. Heart size is normal. Bones and chest wall: No suspicious bony lesions. Overlying soft tissues appear unremarkable. IMPRESSION: No acute pulmonary process. Dictated by: Cheryl Alcantara M.D. on 09/14/2023 at 12:59 Approved by: Cheryl Alcantara M.D. on 09/14/2023 at 12:59
[2023-09-14] MEDS: ALBUTEROL/IPRATROPIUM 3 ML AMPUL INH (12:26)
[2023-09-14 13:13] LABS: Adenovirus Not Detected (Not Detect); B. parapertussis Not Detected (Not Detecte); Bordetella pertussis Not Detected (Not Detect); Chlamydophila pneumoniae Not Detected (Not Detect); Coronavirus 229E Not Detected (Not Detect); Coronavirus HKU1 Not Detected (Not Detect); Coronavirus NL 63 Not Detected (Not Detect); Coronavirus OC43 Not Detected (Not Detect); Human Metapneumovirus Detected (Not Detect); Human Rhinovirus/Enterovirus Not Detected (Not Detect); Influenza A Not Detected (Not Detect); Influenza B Not Detected (Not Detect); Mycoplasma pneumoniae Not Detected (Not Detect); Parainfluenza Virus 1 Not Detected (Not Detect); Parainfluenza Virus 2 Not Detected (Not Detect); Parainfluenza Virus 3 Not Detected (Not Detect); Parainfluenza Virus 4 Not Detected (Not Detect); Respiratory Syncytial Virus Not Detected (Not Detect); SARS- CoV-2 Not Detected (Not Detecte)
--- NOTE | 2023-09-14 13:29 | ED.URI ---
HPI - URI/Sore Throat General Chief Complaint: Upper Respiratory Symptoms Stated Complaint: sent by pcp, upper resp symptoms Time Seen by Provider: 09/14/23 13:23 Source: patient Mode of arrival: Ambulatory History of Present Illness HPI Narrative: Patient here with . Primary care office of Dr. James Garrett sent patient here, patient complains of cough cold congestion for the past 1 week. [id number] had similar symptoms in the past couple of weeks. Patient denies any history of heart attack strokes diabetes or lung disease. Patient received nebulizer treatment here. Patient in no distress. Has active dry cough during exam Related Data Home Medications Medication Instructions Recorded Confirmed cyclobenzaprine 10 mg tablet 10 mg PO ONCE PM 06/04/23 07/30/23 Previous Rx's Medication Instructions Recorded estradiol 0.01% (0.1 mg/gram) 1 g vaginal 3XW #42.5 grams 04/19/23 vaginal cream (Estrace) acetaminophen 325 mg capsule 650 mg (2 x 325 mg) PO QID PRN 06/04/23 (Tylenol) pain #60 caps docusate sodium 100 mg capsule 100 mg PO BID #30 caps 06/04/23 (Colace) omeprazole 20 mg capsule,delayed 20 mg PO DAILY #60 caps 06/04/23 release polyethylene glycol 3350 17 17 g PO DAILY #117 grams 06/04/23 gram/dose oral powder (Miralax) wheat dextrin 3 gram/3.8 gram oral 3 g PO BID #144 grams 06/04/23 powder (Benefiber Sugar Free (dextrin)) ibuprofen 200 mg tablet 400 mg (2 x 200 mg) PO Q6H #60 tabs 07/16/23 gabapentin 300 mg capsule 600 mg (2 x 300 mg) PO DAILY PRN 08/04/23 pain (scale score 4-6) #60 caps albuterol sulfate 90 mcg/actuation 2 inhalation inhalation QID PRN 09/14/23 aerosol inhaler (Ventolin HFA) shortness of breath or wheezing #6.7 grams benzonatate 100 mg capsule 100 mg PO TID PRN cough #20 caps 09/14/23 methylprednisolone 4 mg tablets in See Rx Instructions PO .COMPLEX 09/14/23 a dose pack (Medrol (Virgil)) #21 ea Allergies Allergy/AdvReac Type Severity Reaction Status Date / Time corn Allergy Severe RESPIRATORY Verified 07/30/23 09:05 RXN/SOB/COUGH meperidine Allergy Severe ANAPHYLAXIS Verified 07/30/23 09:05 soy Allergy Severe RESPIRATORY Verified 07/30/23 09:05 DISTRESS/SOB/COUGH Sulfa (Sulfonamide Allergy Severe RASH/SOB Verified 07/30/23 09:05 Antibiotics) wheat Allergy Severe RESPIRATORY Verified 07/30/23 09:05 RXN/SOB/COUGH, GI DISTRESS diclofenac Allergy Intermediate Gastrointestinal Verified 07/30/23 09:05 Upset Review of Systems Review of Systems Narrative: GENERAL: negative chills, fatigue, malaise, fever, sweats. HEENT: negative sinus pain, ear pain, sore throat, positive nasal congestion RESPIRATORY: negative dyspnea, positive cough CARDIOVASCULAR: negative chest pain, palpitations GASTROINTESTINAL: negative nausea, vomiting, abdominal pain : negative dysuria, frequency, hematuria MUSCULOSKELETAL: negative muscle or bony pain SKIN: negative rash, skin lesions NEUROLOGIC: negative weakness, numbness ROS Unobtainable: All systems reviewed & are unremarkable except as noted in HPI and below Patient History Medical History Cholecystitis Surgical History History of esophagogastroduodenoscopy (EGD) (06/04/23) Hx of colonoscopy (06/04/23) History of hysterectomy History of tonsillectomy Family History Father Cardiac arrhythmia Mother Hypertension Asthma Grandmother Cancer Social History marital status: household members: spouse lives independently: Yes occupational status: employed Smoking Status: Never smoker alcohol intake: current substance use type: does not use Smoking Status: Never smoker alcohol intake frequency: a few times a week Substance Use Type: does not use Exam Narrative Exam Narrative: GENERAL: in no distress, not toxic not dyspneic HEAD: Normocephalic. EYES: Pupils equal round ENT: Mucous membranes moist. NECK: Trachea midline. CARDIOVASCULAR: Regular rate and rhythm RESPIRATORY: Clear to auscultation. Breath sounds equal bilaterally. No wheezes, rales, or rhonchi. Has active dry cough. Speaking full sentences GASTROINTESTINAL: Abdomen soft, non-tender EXTREMITIES: No gross deformities. BACK: No flank tenderness. NEURO: AOx4. SKIN: Warm and dry PSYCH: Not anxious, is cooperative Initial Vital Signs Initial Vital Signs: Vital Signs Temperature 99.5 F 09/14/23 11:56 Pulse Rate 98 H 09/14/23 11:56 Respiratory Rate 18 09/14/23 11:56 Blood Pressure 148/86 H 09/14/23 11:56 Pulse Oximetry 97 09/14/23 11:56 Oxygen Delivery Method Room Air 09/14/23 11:56 Course Orders Ordered: Discontinued Medications Albuterol/Ipratropium (Albuterol/Ipratropium 3 Ml Ampul) 3 ml INH NOW ONE Stop: 09/14/23 12:12 Last Admin: 09/14/23 12:26 Dose: 3 ml Documented By: RAÚL Benzonatate (Benzonatate 100 Mg Capsule) 100 mg PO NOW ONE Stop: 09/14/23 13:29 Last Admin: 09/14/23 13:35 Dose: 100 mg Documented By: DORIS Prednisone (Prednisone 20 Mg Tablet) 60 mg PO NOW ONE Stop: 09/14/23 13:29 Last Admin: 09/14/23 13:35 Dose: 60 mg Documented By: DORIS Vital Signs Vital signs: Vital Signs - 8 hr 09/14/23 11:56 09/14/23 12:07 09/14/23 12:07 Temperature 99.5 F Pulse Rate 98 H 88 Respiratory Rate 18 Blood Pressure 148/86 H 133/77 Pulse Oximetry 97 97 Oxygen Delivery Method Room Air 09/14/23 12:27 09/14/23 12:30 09/14/23 12:30 Temperature Pulse Rate 105 H Respiratory Rate Blood Pressure 139/84 Pulse Oximetry 96 97 Oxygen Delivery Method Room Air MDM - URI/Sore Throat Lab Data Labs: Lab Results 09/14/23 Range/Units 12:00 Chlamy pneumoniae PCR Not detected (Not Detect) Adenovirus (PCR) Not detected (Not Detect) B.parapertussis DNA PCR Not detected (Not Detecte) Coronavirus OC43 (PCR) Not detected (Not Detect) Coronavirus HKU1 (PCR) Not detected (Not Detect) Coronavirus 229E (PCR) Not detected (Not Detect) SARS-CoV-2 (PCR) Not detected (Not Detecte) Coronavirus NL63 (PCR) Not detected (Not Detect) Human Metapneumovir PCR Detected H (Not Detect) Influenza Type A (PCR) Not detected (Not Detect) Influenza Type B (PCR) Not detected (Not Detect) M. pneumoniae (PCR) Not detected (Not Detect) Parainfluenza 1 (PCR) Not detected (Not Detect) Parainfluenza 2 (PCR) Not detected (Not Detect) Parainfluenza 3 (PCR) Not detected (Not Detect) Parainfluenza 4 (PCR) Not detected (Not Detect) RSV (PCR) Not detected (Not Detect) Entero/Rhino (PCR) Not detected (Not Detect) MDM Narrative Medical decision making narrative: Patient here with . Primary care office of Dr. James Garrett sent patient here, patient complains of cough cold congestion for the past 1 week. [id number] had similar symptoms in the past couple of weeks. Patient denies any history of heart attack strokes diabetes or lung disease. Patient received nebulizer treatment here. Patient in no distress. Has active dry cough during exam After history and exam [facility] Medical records reviewed: No recent visit for this complaint Differential considered: Includes but not limited to pneumonia bronchitis seasonal allergies COVID influenza rhino virus Lab Test results independently reviewed as above. Pertinent findings: Respiratory panel positive human metapneumovirus Imaging studies independently reviewed: Chest x-ray no acute finding Consultations: None indicated Treatments: DuoNeb Tessalon Perle prednisone Re-evaluations: 3:15 p.m.. Patient feeling much better. Reviewed results with patient and . They agree with treatment plan. Work note provided. Prescriptions will be provided. She does have a family doctor to follow up with. Not toxic or dyspneic or hypoxic or requiring supplemental oxygen at time of discharge. They desire discharge home. Return precautions reviewed Discussion: Appropriate for discharge home exam is reassuring not hypoxic or tachypneic. Feeling much better at time of discharge. Return precautions reviewed. They desire discharge home. Diagnosis: Viral bronchitis Discharge Plan Departure Patient Disposition: Home Clinical Impression: Acute bronchitis due to human metapneumovirus (hMPV) Instructions: DI for Acute Bronchitis Activity Restrictions/Additional Instructions: Please see family doctor in a week for re-evaluation. Work note has been provided for this week. Prescription medication has been sent to your [facility] to continue. Use inhaler 2 puffs every 4 hours as needed for cough. Your viral nasal test shows positive for human metapneumovirus. No antibiotics are indicated. Your x-ray did not show pneumonia. Keep well hydrated. Return if worse if any questions or concerns Prescriptions: New benzonatate 100 mg capsule 100 mg PO TID PRN (Reason: cough) Qty: 20 0RF methylprednisolone [Medrol (Virgil)] 4 mg tablets,dose pack See Rx Instructions .ROUTE .COMPLEX Qty: 21 0RF Rx Instructions: orally per package directions albuterol sulfate [Ventolin HFA] 90 mcg/actuation HFA aerosol inhaler 2 inhalation INHALATION QID PRN (Reason: shortness of breath or wheezing) Qty: 6.7 0RF No Action gabapentin 300 mg capsule 600 mg PO DAILY PRN (Reason: pain (scale score 4-6)) Qty: 60 2RF estradiol [Estrace] 0.01 % (0.1 mg/gram) cream 1 g vaginal 3XW Qty: 42.5 3RF cyclobenzaprine 10 mg tablet 10 mg PO ONCE PM Benefiber Sugar Free (dextrin) 3 gram/3.8 gram powder 3 g PO BID Qty: 144 0RF Rx Instructions: mix into at least 4 oz water or juice before administering docusate sodium [Colace] 100 mg capsule 100 mg PO BID Qty: 30 0RF polyethylene glycol 3350 [Miralax] 17 gram/dose powder 17 g PO DAILY Qty: 117 0RF acetaminophen [Tylenol] 325 mg capsule 650 mg PO QID PRN (Reason: pain) Qty: 60 0RF omeprazole 20 mg capsule,delayed release(DR/EC) 20 mg PO DAILY Qty: 60 0RF ibuprofen 200 mg tablet 400 mg PO Q6H Qty: 60 0RF Referrals: James Garrett MD [Primary Care Provider] - Stand Alone Forms: Patient Portal/API, Work Release Note
[2023-09-14] MEDS: predniSONE 20 MG TABLET 60 MG PO (13:35)
[2023-09-14] MEDS: BENZONATATE 100 MG CAPSULE PO (13:35)
== END 2023-09-14 15:41 | disposition home or self-care (01) ==
PROVIDERS: Emergency Provider Emergency Medicine; Family Provider Family Medicine; PCP Family Medicine
DX: J20.8 Acute bronchitis due to other specified organisms (principal); B97.81 Human metapneumovirus as the cause of diseases classified elsewhere
CPT/HCPCS: 71045; 87633; 94640; 99283

== ENCOUNTER → 2025-03-16 11:05 | Outpatient (CLI) | payer OTHER, SELFPAY ==
--- NOTE | 2025-03-16 11:06 | DI.US.S_ITS ---
PROCEDURE: US ABDOMEN COMPLETE INDICATIONS: Hx of fatty liver; intermittent LUQ pain TECHNIQUE: Real-time scanning was performed of the abdominal and retroperitoneal organs, with image documentation. COMPARISON: [facility], US, US ABDOMEN COMPLETE, 04/26/2023, 8:34. [facility], US, US ABDOMEN COMPLETE, 01/21/2022, 9:21. FINDINGS: Liver: Liver is normal in size and homogeneous in echotexture, mildly hyperechoic consistent with fatty infiltration. Gallbladder: Surgically absent Biliary ducts: Intrahepatic bile ducts are non-dilated. Extrahepatic bile duct caliber measures 7.0 mm. Normal is 6-7 mm or less in diameter, or 10 mm or less post-cholecystectomy. Pancreas: Visualized portions of the pancreas are sonographically normal. Limited visualization due to overlying bowel gas. Spleen: Spleen is normal in size and homogeneous in echotexture. Kidneys: Kidneys are normal in size and echotexture. Right kidney measures 10.5 cm long; left kidney measures 4 cm long. No hydronephrosis or nephrolithiasis. No solid masses. Normal cortical thickness. Aorta: Visualized aorta is normal in caliber at less than 3 cm. Iliacs: Proximal common iliac arteries are normal in caliber at less than 2.5 cm. IVC: Intrahepatic inferior vena cava is patent. Miscellaneous: No free abdominal fluid. IMPRESSION: Mild fatty infiltration throughout the liver. Direction of blood flow within the portal vein is normal. Prior cholecystectomy. No acute disease. Dictated by: Bernardo Mi M.D. on 03/16/2025 at 13:46 Approved by: Bernardo Mi M.D. on 03/16/2025 at 13:47
--- NOTE | 2025-03-16 11:06 | DI.US.S_ITS ---
MM diagnostic mammo BI, US breast LT limited: 03/16/2025 BI-RADS: 2 CLINICAL: 60-year old female for bilateral diagnostic mammogram and left diagnostic breast ultrasound. Tyrer-Cuzick lifetime risk of 7.4%. No personal or first- degree family history of breast cancer. Current reported family history of breast cancer: maternal aunt. PRIOR EXAMS 05/26/2023, 12/03/2021. MAMMOGRAPHY TECHNIQUE: 2D and 3D (tomosynthesis) digital mammographic views obtained, with additional images as needed for full coverage. Current study was also evaluated with a Computer Aided Detection (CAD) system. ULTRASOUND TECHNIQUE Real-time edmonds scale and color doppler imaging of the area of clinical interest was performed with image documentation. DENSITY B. There are scattered areas of fibroglandular density. MAMMOGRAPHY FINDINGS Right: No suspicious mass, asymmetry, microcalcification, or other abnormality seen. Left: Upper Outer Quadrant, Middle depth: There is a focal asymmetry present. This finding is not significantly changed since May 2023. ULTRASOUND FINDINGS Left: Upper Outer at 12:30, 6 cm from nipple, measuring 1.2 x 2.2 x 0.6 cm: Correlating with findings on mammogram there is an oval, circumscribed, hypoechoic mass that is parallel. Doppler shows no vascularity. This finding is not significantly changed since May 2023 when accounting for differences in technique and measurement. Given this finding has demonstrated near 2 years of stability, it is consistent with a benign etiology. IMPRESSION: Right * No evidence of malignancy. Left * No evidence of malignancy with benign findings. RECOMMENDATIONS Bilateral * Annual screening mammography. COMMENTS: Findings and recommendations were conveyed to the patient during today's evaluation. OVERALL ASSESSMENT CATEGORY BI-RADS-2: Benign. The [employer] recommends annual screening mammography beginning at age 40 for women with average risk of breast cancer. ELECTRONICALLY SIGNED: Linda Lilly M.D. on 03/16/2025 at 02:40:04 PM PT Interpreting Station ID: [id number]
[2025-03-16 14:18] LABS: Add Manual Diff / Slide Review NO; Hematocrit 41.9 % (36-46); Hemoglobin 14.1 g/dL (12.0-16.0); Lymphocytes Absolute Auto 2800 /uL (1100-4500); Mean Corpuscular HGB Conc 33.7 % (30-36); Mean Corpuscular Hemoglobin 29.8 PG (26-34); Mean Corpuscular Volume 88.4 fL (80-100); Platelet Count 321 X10^3/uL (150-400)
[2025-03-16 15:13] LABS: Alanine Aminotransferase 42 IU/L (<35); Albumin 4.5 g/dL (3.5-5.0); Albumin Globulin Ratio 1.5 (1.0-2.8); Alkaline Phosphatase 90 U/L (38-126); Blood Urea Nitrogen 10 mg/dL (7-17); Calcium 10.3 mg/dL (8.4-10.2); Carbon Dioxide 26 mmol/L (22-32); Chloride 103 mmol/L (98-107); Cholesterol 229 mg/dL (140-199); Estimated Glomerular Filt Rate > 60 mL/min (>60); Globulin 3.1 g/dL (1.7-4.1); Glucose 91 mg/dL (70-99); HDL Cholesterol 77 mg/dL (40-60); HEMOLYSIS < 15 (0-50); Potassium 4.3 mmol/L (3.4-5.1); Sodium 138 mmol/L (137-145); Total Protein 7.6 g/dL (6.3-8.2); Triglycerides 113 mg/dL (35-150)
[2025-03-16 15:45] LABS: TSH w/ Reflex to FT4 0.88 uIU/mL (0.47-4.68)
== END ==
PROVIDERS: PCP Family Medicine; Referring Provider Physician Assistant; Visit Provider Physician Assistant
DX: R92.8 Other abnormal and inconclusive findings on diagnostic imaging of breast (principal); K76.0 Fatty (change of) liver, not elsewhere classified; R10.12 Left upper quadrant pain; G89.29 Other chronic pain; R10.84 Generalized abdominal pain; E78.5 Hyperlipidemia, unspecified; Z90.49 Acquired absence of other specified parts of digestive tract; Z80.3 Family history of malignant neoplasm of breast
CPT/HCPCS: 36415; 76642; 76700; 77066; 80053; 80061; 84443; 85025; G0279

== ENCOUNTER → 2025-04-05 17:14 | Outpatient (CLI) | payer OTHER, SELFPAY | PROVIDERS: PCP Family Medicine; Visit Provider Family Medicine | DX: N76.0 Acute vaginitis (principal) | CPT/HCPCS: 87210; 87220 ==